=== PATIENT | female | born 1980 | race Caucasian/White ===

== ENCOUNTER 2017-10-16 14:50 | Inpatient (IN) | payer OTHER ==
[2017-10-16] MEDS ORDERED: metroNIDAZOLE 500 MG/NS (PMX) 100 ML IVPB (15:54)
[2017-10-16] MEDS: morphine 2 MG INJ IV (16:17)
[2017-10-16] MEDS: SODIUM CHLORIDE 0.9% 1L BAG IV* (16:17)
[2017-10-16 16:31] LABS: ADD MAN DIFF? NO
[2017-10-16 16:33] LABS: BASOPHILS % 0.2 % (0.0-2.0); HEMATOCRIT 33.8 % (37.0-47.0); HEMOGLOBIN 10.6 g/dl (12.0-16.0); LYMPHOCYTES # 0.9 10^3/ul (0.8-2.9); LYMPHOCYTES % 7.1 % (15.0-51.0); MEAN CORPUSCULAR HEMOGLOBIN 23.7 pg (29.0-33.0); MEAN CORPUSCULAR HGB CONC 31.4 g/dl (32.0-37.0); MEAN CORPUSCULAR VOLUME 75.4 fl (82.0-101.0); MEAN PLATELET VOLUME 8.9 fl (7.4-10.4); MONOCYTE # 1.2 10^3/ul (0.3-0.9); MONOCYTES % 9.9 % (0.0-11.0); NEUTROPHIL # 10.2 10^3/ul (1.6-7.5); NEUTROPHILS % 82.2 % (39.0-77.0); PLATELET COUNT 384 10^3/UL (140-415); RED BLOOD COUNT 4.48 10^6/ul (4.20-5.40); RED CELL DISTRIBUTION WIDTH 17.4 % (11.5-14.5)
[2017-10-16 16:33] LABS: WHITE BLOOD COUNT 12.4 10^3/ul (4.8-10.8)
[2017-10-16 16:53] LABS: INR 1.15; PARTIAL THROMBOPLASTIN TIME 37.7 Sec (25.0-35.0); PROTIME 14.9 Sec (11.9-14.9); PT RATIO 1.2
[2017-10-16 16:54] LABS: LACTIC ACID 1.2 mmol/L (0.5-2.0)
[2017-10-16 16:55] LABS: ALANINE AMINOTRANSFERASE 51 IU/L (13-69); ALBUMIN 3.7 g/dl (3.3-4.9); ALBUMIN/GLOBULIN RATIO 0.97; ALKALINE PHOSPHATASE 163 IU/L (42-121); ANION GAP 15 (8-16); ASPARTATE AMINO TRANSFERASE 47 IU/L (15-46); BILIRUBIN,INDIRECT 0.7 mg/dl (0-1.1); BILIRUBIN,TOTAL 0.7 mg/dl (0.2-1.3); BLOOD UREA NITROGEN 10 mg/dl (7-20); CALCIUM 8.5 mg/dl (8.4-10.2); CARBON DIOXIDE 24 mmol/L (21-31); CHLORIDE 94 mmol/L (97-110); CREATININE 0.62 mg/dl (0.44-1.00); GLUCOSE 117 mg/dl (70-220); POTASSIUM 3.6 mmol/L (3.5-5.1); SODIUM 129 mmol/L (135-144); TOTAL PROTEIN 7.5 g/dl (6.1-8.1)
[2017-10-16] MEDS: ACETAMINOPHEN 500 MG TAB PO (17:09)
[2017-10-16] MEDS: PIPER-TAZO 3.375 GM IV (PMX) 100 ML IVPB ×2 (17:09→23:50)
[2017-10-16] MEDS: morphine 4 MG/ML VIAL IV ×2 (17:29→19:03)
[2017-10-16] MEDS: VANCOMYCIN 1 GM (PMX) 250 ML IVPB (18:10)
[2017-10-16 18:18] LABS: ADD UMIC YES; UR ASCORBIC ACID NEGATIVE (NEGATIVE); UR BACTERIA FEW /HPF (NONE SEEN); UR BILIRUBIN (Dip) NEGATIVE (NEGATIVE); UR BLOOD (Dip) 1+ mg/dL (NEGATIVE); UR CLARITY SLIGHTLY CLOUDY (CLEAR); UR COLOR YELLOW (YELLOW); UR GLUCOSE (Dip) NEGATIVE (NEGATIVE); UR KETONES (Dip) NEGATIVE (NEGATIVE); UR LEUKOCYTE ESTERASE (Dip) TRACE Leu/ul (NEGATIVE); UR NITRITE (Dip) NEGATIVE (NEGATIVE); UR RBC 1 /HPF (0-5); UR SPECIFIC GRAVITY (Dip) 1.016 (1.003-1.030); UR SQUAMOUS EPITHELIAL CELL FEW /HPF (FEW); UR TOTAL PROTEIN (Dip) NEGATIVE (NEGATIVE); UR UROBILINOGEN (Dip) 2+ mg/dL (NEGATIVE); UR WBC 4 /HPF (0-5)
[2017-10-16] MEDS: HYDROmorphONE 2 MG/ML SYG IV (19:33)
[2017-10-16] MEDS ORDERED: ONDANSETRON 4 MG INJ IV ×2 (20:30→22:30)
[2017-10-16] MEDS ORDERED: ACETAMINOPHEN 325 MG TAB PO (20:30)
[2017-10-16] MEDS: SOD CHLORIDE 0.9% 1,000 ML IV ×2 (20:47→22:43)
[2017-10-16] MEDS: IOHEXOL 300MG/ML 150 ML BTL (21:24)
[2017-10-16] MEDS: SOD CHLORIDE 0.9% 100 ML (21:24)
[2017-10-16] MEDS ORDERED: hydrALAzine 20 MG INJ IV (22:30)
[2017-10-16] MEDS ORDERED: NA PHOSPHATE/BIPHOS 133 ML ENEMA PR (22:30)
[2017-10-16] MEDS ORDERED: DOCUSATE SODIUM 100 MG CAP PO (22:30)
[2017-10-16] MEDS ORDERED: ALBUTEROL/IPRATROPIUM (NEB) 3 ML AMP HHN (22:30)
[2017-10-16] MEDS ORDERED: MAGNESIUM HYDROXIDE 30ML CUP PO (22:30)
[2017-10-16] MEDS ORDERED: NITROGLYCERIN (SL) 0.4 MG TAB SL (22:30)
[2017-10-16] MEDS ORDERED: VANCOMYCIN IV PER PHARMACY XX (22:30)
[2017-10-16] MEDS: NACL 0.9% 3 ML SYG IV (22:53)
[2017-10-16 23:39] LABS: INR 1.37; PROTIME 17.1 Sec (11.9-14.9); PT RATIO 1.3
[2017-10-16 23:40] LABS: PARTIAL THROMBOPLASTIN TIME 39.6 Sec (25.0-35.0)
[2017-10-17 01:10] LABS: LACTIC ACID 1.1 mmol/L (0.5-2.0)
[2017-10-17] MEDS: VANCOMYCIN 1 GM 250 ML IVPB ×2 (02:06→11:39)
[2017-10-17] MEDS: ACETAMINOPHEN 325 MG TAB PO (02:07)
[2017-10-17] MEDS: HYDROCODONE/APAP (5/325) TAB PO ×3 (03:19→18:08)
[2017-10-17] MEDS: PANTOPRAZOLE (EC) 40 MG TAB PO (05:04)
[2017-10-17] MEDS: PIPER-TAZO 3.375 GM IV (PMX) 100 ML IVPB ×3 (05:04→18:08)
[2017-10-17 06:33] LABS: WHITE BLOOD COUNT 6.4 10^3/ul (4.8-10.8)
[2017-10-17 06:33] LABS: ABNORMAL IP MESSAGE 1; HEMATOCRIT 33.8 % (37.0-47.0); HEMOGLOBIN 10.4 g/dl (12.0-16.0); MEAN CORPUSCULAR HGB CONC 30.8 g/dl (32.0-37.0); MEAN CORPUSCULAR VOLUME 78.1 fl (82.0-101.0); MEAN PLATELET VOLUME 9.7 fl (7.4-10.4); PLATELET COUNT 383 10^3/UL (140-415); RED BLOOD COUNT 4.33 10^6/ul (4.20-5.40); RED CELL DISTRIBUTION WIDTH 17.9 % (11.5-14.5)
[2017-10-17 06:41] LABS: LACTIC ACID 1.6 mmol/L (0.5-2.0)
[2017-10-17 06:55] LABS: POSITIVE DIFF @See below
[2017-10-17 06:56] LABS: ADD MAN DIFF? YES
[2017-10-17] MEDS: HEPARIN 5,000 UNIT/0.5 ML VIAL SC ×2 (08:25→19:56)
[2017-10-17] MEDS: morphine 2 MG INJ IV ×2 (08:31→19:53)
[2017-10-17 09:07] LABS: ANISOCYTOSIS 1+ (0-0); BAND NEUTROPHILS #M 1.9 10^3/ul (0.0-0.6); BAND NEUTROPHILS % (M) 31 % (0-4); GIANT THROMBO% (M) 17 % (0-0); LYMPHOCYTES #M 1.7 10^3/ul (0.8-2.9); LYMPHOCYTES % (M) 28 % (15-51); METAMYELOCYTES #M 0.1 10^3/ul (0.0-0.0); METAMYELOCYTES %M 2 % (0-0); MICROCYTOSIS 1+ (0-0); MONOCYTE #M 0.7 10^3/ul (0.3-0.9); MONOCYTES % (M) 11 % (0-11); PLATELET ESTIMATE NORMAL; REACTIVE LYMPHOCYTES #M 0.7 10^3/ul (0.0-0.0); REACTIVE LYMPHOCYTES% (M) 11 % (0-0); SEG NEUT #M 1.1 10^3/ul (1.7-7.5); SEGMENTED NEUTROPHILS (M) % 16 % (39-77); SMUDGE%M 7 % (0-0)
[2017-10-17 09:53] LABS: HEMOGLOBIN A1C 5.1 % (0-5.9)
[2017-10-17] MEDS: SOD CHLORIDE 0.9% 1,000 ML IV ×2 (10:26→18:08)
[2017-10-17] MEDS: LORAZEPAM 2 MG INJ IV (11:45)
[2017-10-17 12:22] LABS: ANION GAP 12 (8-16); BLOOD UREA NITROGEN 18 mg/dl (7-20); CALCIUM 7.4 mg/dl (8.4-10.2); CARBON DIOXIDE 23 mmol/L (21-31); CHLORIDE 105 mmol/L (97-110); CHOL/HDL RATIO 3.4 RATIO; CHOLESTEROL 58 mg/dl (100-200); CREATININE 1.14 mg/dl (0.44-1.00); GLUCOSE 78 mg/dl (70-220); HDL CHOLESTEROL 17 mg/dl (34-88); LDL CHOLESTEROL,CALCULATED 28 mg/dl; MAGNESIUM 1.6 mg/dl (1.7-2.5); PHOSPHORUS 5.3 mg/dl (2.5-4.9); POTASSIUM 3.6 mmol/L (3.5-5.1); SODIUM 136 mmol/L (135-144); TRIGLYCERIDES 67 mg/dl (0-149)
[2017-10-17 13:04] LABS: LACTIC ACID 1.2 mmol/L (0.5-2.0)
[2017-10-17] MEDS: MAGNESIUM OXIDE 400 MG TAB PO (15:38)
[2017-10-17 18:45] LABS: LACTIC ACID 1.2 mmol/L (0.5-2.0)
[2017-10-18] MEDS: PIPER-TAZO 3.375 GM IV (PMX) 100 ML IVPB ×4 (00:13→20:20)
[2017-10-18] MEDS: HYDROmorphONE 0.5 MG/0.5 ML SYG IV ×5 (00:13→18:12)
[2017-10-18] MEDS: SOD CHLORIDE 0.9% 1,000 ML IV ×4 (00:52→23:03)
[2017-10-18] MEDS: PANTOPRAZOLE (EC) 40 MG TAB PO (05:29)
[2017-10-18 06:39] LABS: WHITE BLOOD COUNT 12.6 10^3/ul (4.8-10.8)
[2017-10-18 06:39] LABS: HEMATOCRIT 31.5 % (37.0-47.0); HEMOGLOBIN 10.2 g/dl (12.0-16.0); MEAN CORPUSCULAR HEMOGLOBIN 24.3 pg (29.0-33.0); MEAN CORPUSCULAR HGB CONC 32.4 g/dl (32.0-37.0); MEAN PLATELET VOLUME 9.9 fl (7.4-10.4); PLATELET COUNT 432 10^3/UL (140-415); RED CELL DISTRIBUTION WIDTH 17.9 % (11.5-14.5)
[2017-10-18 06:56] LABS: IRON < 10 ug/dl (35-150)
[2017-10-18 06:59] LABS: ANION GAP 12 (8-16); BLOOD UREA NITROGEN 13 mg/dl (7-20); CALCIUM 7.8 mg/dl (8.4-10.2); CARBON DIOXIDE 24 mmol/L (21-31); CHLORIDE 100 mmol/L (97-110); CREATININE 0.75 mg/dl (0.44-1.00); GLUCOSE 82 mg/dl (70-220); POTASSIUM 3.3 mmol/L (3.5-5.1); SODIUM 133 mmol/L (135-144)
[2017-10-18 06:59] LABS: VANCOMYCIN,RANDOM < 5.0 ug/ml
[2017-10-18 07:01] LABS: ADD MAN DIFF? YES; POSITIVE DIFF @See below
[2017-10-18 07:03] LABS: TOTAL IRON BINDING CAPACITY 225 ug/dl (241-421)
[2017-10-18 07:26] LABS: MAGNESIUM 1.7 mg/dl (1.7-2.5)
[2017-10-18] MEDS: ACETAMINOPHEN 325 MG TAB PO ×2 (08:23→20:20)
[2017-10-18] MEDS: VANCOMYCIN 1 GM 250 ML IVPB ×2 (08:24→18:12)
[2017-10-18] MEDS: HEPARIN 5,000 UNIT/0.5 ML VIAL SC (08:24)
[2017-10-18] MEDS: LORAZEPAM 2 MG INJ IV (08:28)
[2017-10-18] MEDS ORDERED: VANCOMYCIN 1 GM 250 ML IVPB (09:00)
[2017-10-18 10:01] LABS: BAND NEUTROPHILS #M 2.6 10^3/ul (0.0-0.6); BAND NEUTROPHILS % (M) 21 % (0-4); HYPOCHROMASIA 1+ (0-0); LYMPHOCYTES #M 0.8 10^3/ul (0.8-2.9); LYMPHOCYTES % (M) 7 % (15-51); MONOCYTE #M 0.3 10^3/ul (0.3-0.9); MONOCYTES % (M) 3 % (0-11); PLATELET ESTIMATE NORMAL; POLYCHROMASIA 1+ (0-0); SEGMENTED NEUTROPHILS (M) % 69 % (39-77)
[2017-10-18] MEDS: HYDROCODONE/APAP (5/325) TAB PO (11:12)
[2017-10-18 12:07] LABS: INR 1.36; PT RATIO 1.3
[2017-10-18 12:08] LABS: PARTIAL THROMBOPLASTIN TIME 53.6 Sec (25.0-35.0)
[2017-10-18] MEDS: PHYTONADIONE 10 MG in DEXTROSE 5% 50 ML IVPB (13:03)
[2017-10-18] MEDS: PROTAMINE 50 MG INJ IV (14:42)
[2017-10-18] MEDS: SOD CHLORIDE 0.9% 500 ML (17:00)
[2017-10-18] MEDS: LIDOCAINE 1% (MDV) 20 ML INJ (17:15)
[2017-10-18] MEDS: FENTAnyl 50 MCG/ML VIAL (17:58)
[2017-10-18] MEDS: MIDAZOLAM 1 MG/ML 2 ML INJ (17:58)
[2017-10-18] MEDS: SOD CHLORIDE 0.9% 500 ML IV (18:10)
[2017-10-18] MEDS ORDERED: BARIUM SULF 2% 450 ML BTL (BERRY SMOOTHIE) PO (18:30)
[2017-10-18] MEDS: HYDROmorphONE 1 MG/ML SYG IV (18:41)
[2017-10-18 18:55] LABS: INR 1.26; PT RATIO 1.3
[2017-10-18 18:56] LABS: PARTIAL THROMBOPLASTIN TIME 52.4 Sec (25.0-35.0)
[2017-10-18 20:13] LABS: WHITE BLOOD COUNT 13.4 10^3/ul (4.8-10.8)
[2017-10-18 20:13] LABS: ABNORMAL IP MESSAGE 1; HEMATOCRIT 28.8 % (37.0-47.0); HEMOGLOBIN 9.3 g/dl (12.0-16.0); MEAN CORPUSCULAR HEMOGLOBIN 24.1 pg (29.0-33.0); MEAN CORPUSCULAR HGB CONC 32.3 g/dl (32.0-37.0); MEAN CORPUSCULAR VOLUME 74.6 fl (82.0-101.0); MEAN PLATELET VOLUME 9.2 fl (7.4-10.4); PLATELET COUNT 419 10^3/UL (140-415); RED BLOOD COUNT 3.86 10^6/ul (4.20-5.40)
[2017-10-18 20:17] LABS: ALANINE AMINOTRANSFERASE 37 IU/L (13-69); ALBUMIN 2.7 g/dl (3.3-4.9); ALBUMIN/GLOBULIN RATIO 0.79; ALKALINE PHOSPHATASE 110 IU/L (42-121); ANION GAP 13 (8-16); ASPARTATE AMINO TRANSFERASE 29 IU/L (15-46); BILIRUBIN,INDIRECT 0.6 mg/dl (0-1.1); BILIRUBIN,TOTAL 1.5 mg/dl (0.2-1.3); BLOOD UREA NITROGEN 10 mg/dl (7-20); CALCIUM 7.6 mg/dl (8.4-10.2); CARBON DIOXIDE 23 mmol/L (21-31); CHLORIDE 101 mmol/L (97-110); CREATININE 0.62 mg/dl (0.44-1.00); GLUCOSE 91 mg/dl (70-220); POTASSIUM 3.5 mmol/L (3.5-5.1); SODIUM 133 mmol/L (135-144); TOTAL PROTEIN 6.1 g/dl (6.1-8.1)
[2017-10-18 20:22] LABS: LACTIC ACID 1.7 mmol/L (0.5-2.0)
[2017-10-18 20:22] LABS: ADD MAN DIFF? YES; POSITIVE DIFF @See below
[2017-10-18 20:45] LABS: ANISOCYTOSIS 1+ (0-0); BAND NEUTROPHILS #M 1.8 10^3/ul (0.0-0.6); BAND NEUTROPHILS % (M) 14 % (0-4); HYPOCHROMASIA 1+ (0-0); LYMPHOCYTES #M 0.1 10^3/ul (0.8-2.9); LYMPHOCYTES % (M) 1 % (15-51); MICROCYTOSIS 1+ (0-0); MONOCYTE #M 0.2 10^3/ul (0.3-0.9); MONOCYTES % (M) 2 % (0-11); PLATELET ESTIMATE INCREASED; POLYCHROMASIA 1+ (0-0); SEG NEUT #M 11.4 10^3/ul (1.7-7.5); SEGMENTED NEUTROPHILS (M) % 83 % (39-77); SMUDGE%M 1 % (0-0)
[2017-10-19] MEDS: PIPER-TAZO 3.375 GM IV (PMX) 100 ML IVPB ×4 (00:31→17:34)
[2017-10-19] MEDS: IOHEXOL 300MG/ML 150 ML BTL (00:42)
[2017-10-19] MEDS: SOD CHLORIDE 0.9% 100 ML (00:42)
[2017-10-19 01:13] LABS: LACTIC ACID 1.2 mmol/L (0.5-2.0)
[2017-10-19] MEDS: VANCOMYCIN 1 GM 250 ML IVPB ×2 (01:19→08:57)
[2017-10-19] MEDS: HYDROmorphONE 0.5 MG/0.5 ML SYG IV ×3 (02:12→09:31)
[2017-10-19] MEDS: SOD CHLORIDE 0.9% 500 ML IV (03:31)
[2017-10-19] MEDS: PANTOPRAZOLE (EC) 40 MG TAB PO (06:27)
[2017-10-19 08:04] LABS: WHITE BLOOD COUNT 13.3 10^3/ul (4.8-10.8)
[2017-10-19 08:04] LABS: HEMATOCRIT 26.8 % (37.0-47.0); HEMOGLOBIN 8.5 g/dl (12.0-16.0); MEAN CORPUSCULAR HEMOGLOBIN 23.7 pg (29.0-33.0); MEAN CORPUSCULAR HGB CONC 31.7 g/dl (32.0-37.0); MEAN CORPUSCULAR VOLUME 74.7 fl (82.0-101.0); MEAN PLATELET VOLUME 8.9 fl (7.4-10.4); PLATELET COUNT 374 10^3/UL (140-415); RED BLOOD COUNT 3.59 10^6/ul (4.20-5.40); RED CELL DISTRIBUTION WIDTH 17.9 % (11.5-14.5)
[2017-10-19 08:09] LABS: ADD MAN DIFF? YES; POSITIVE DIFF @See below
[2017-10-19] MEDS: HYDROCODONE/APAP (5/325) TAB PO ×2 (08:14→14:43)
[2017-10-19 08:26] LABS: LACTIC ACID 0.8 mmol/L (0.5-2.0)
[2017-10-19 08:28] LABS: ALANINE AMINOTRANSFERASE 36 IU/L (13-69); ALBUMIN 2.4 g/dl (3.3-4.9); ALBUMIN/GLOBULIN RATIO 0.72; ALKALINE PHOSPHATASE 109 IU/L (42-121); ANION GAP 9 (8-16); ASPARTATE AMINO TRANSFERASE 29 IU/L (15-46); BILIRUBIN,INDIRECT 0.3 mg/dl (0-1.1); BILIRUBIN,TOTAL 0.6 mg/dl (0.2-1.3); BLOOD UREA NITROGEN 6 mg/dl (7-20); CARBON DIOXIDE 27 mmol/L (21-31); CHLORIDE 101 mmol/L (97-110); CREATININE 0.54 mg/dl (0.44-1.00); GLUCOSE 91 mg/dl (70-220); POTASSIUM 3.1 mmol/L (3.5-5.1); SODIUM 134 mmol/L (135-144); TOTAL PROTEIN 5.7 g/dl (6.1-8.1)
[2017-10-19 09:03] LABS: VANCOMYCIN,TROUGH 9.8 ug/ml (10.0-20.0)
[2017-10-19] MEDS: HYDROmorphONE 1 MG/ML SYG IV ×4 (12:11→22:51)
[2017-10-19 12:50] LABS: ANISOCYTOSIS 1+ (0-0); BAND NEUTROPHILS #M 2.6 10^3/ul (0.0-0.6); BAND NEUTROPHILS % (M) 20 % (0-4); GIANT THROMBO% (M) 3 % (0-0); HYPOCHROMASIA 2+ (0-0); LYMPHOCYTES #M 0.9 10^3/ul (0.8-2.9); LYMPHOCYTES % (M) 7 % (15-51); MICROCYTOSIS 1+ (0-0); MONOCYTE #M 0.3 10^3/ul (0.3-0.9); MONOCYTES % (M) 3 % (0-11); PLATELET ESTIMATE NORMAL; SEG NEUT #M 9.4 10^3/ul (1.7-7.5); SEGMENTED NEUTROPHILS (M) % 68 % (39-77); SMUDGE%M 2 % (0-0)
[2017-10-19] MEDS ORDERED: POTASSIUM CHLORIDE 50 ML IVPB (13:00)
[2017-10-19] MEDS: POTASSIUM CHLORIDE (SR) 20 MEQ TAB PO (14:43)
[2017-10-19] MEDS ORDERED: FLUCONAZOLE 100 MG/NS (PMX) 50 ML IVPB (16:00)
[2017-10-19] MEDS: FLUCONAZOLE 100 MG/NS (PMX) 50 ML IVPB (16:30)
[2017-10-19] MEDS: VANCOMYCIN 1.25 GM in SOD CHLORIDE 0.45% 250 ML IVPB (18:21)
[2017-10-20] MEDS: PIPER-TAZO 3.375 GM IV (PMX) 100 ML IVPB ×4 (00:50→17:33)
[2017-10-20] MEDS: VANCOMYCIN 1.25 GM in SOD CHLORIDE 0.45% 250 ML IVPB ×3 (02:06→17:33)
[2017-10-20] MEDS: HYDROmorphONE 1 MG/ML SYG IV ×3 (02:15→21:32)
[2017-10-20] MEDS: ACETAMINOPHEN 325 MG TAB PO (04:50)
[2017-10-20] MEDS: PANTOPRAZOLE (EC) 40 MG TAB PO (05:07)
[2017-10-20 09:17] LABS: ADD MAN DIFF? NO
[2017-10-20 09:25] LABS: WHITE BLOOD COUNT 10.7 10^3/ul (4.8-10.8)
[2017-10-20 09:25] LABS: BASOPHILS % 0.3 % (0.0-2.0); EOSINOPHILS # 0.1 10^3/ul (0.0-0.5); EOSINOPHILS % 0.7 % (0.0-7.0); HEMATOCRIT 26.4 % (37.0-47.0); HEMOGLOBIN 8.5 g/dl (12.0-16.0); LYMPHOCYTES # 1.1 10^3/ul (0.8-2.9); LYMPHOCYTES % 9.9 % (15.0-51.0); MEAN CORPUSCULAR HEMOGLOBIN 23.9 pg (29.0-33.0); MEAN CORPUSCULAR HGB CONC 32.2 g/dl (32.0-37.0); MEAN CORPUSCULAR VOLUME 74.4 fl (82.0-101.0); MEAN PLATELET VOLUME 9.3 fl (7.4-10.4); MONOCYTE # 0.6 10^3/ul (0.3-0.9); MONOCYTES % 5.6 % (0.0-11.0); NEUTROPHIL # 8.5 10^3/ul (1.6-7.5); NEUTROPHILS % 79.8 % (39.0-77.0); PLATELET COUNT 376 10^3/UL (140-415); RED BLOOD COUNT 3.55 10^6/ul (4.20-5.40)
[2017-10-20 09:51] LABS: ALANINE AMINOTRANSFERASE 39 IU/L (13-69); ALBUMIN 2.6 g/dl (3.3-4.9); ALBUMIN/GLOBULIN RATIO 0.81; ALKALINE PHOSPHATASE 148 IU/L (42-121); ANION GAP 10 (8-16); ASPARTATE AMINO TRANSFERASE 22 IU/L (15-46); BILIRUBIN,INDIRECT 0.2 mg/dl (0-1.1); BILIRUBIN,TOTAL 0.2 mg/dl (0.2-1.3); CALCIUM 7.9 mg/dl (8.4-10.2); CARBON DIOXIDE 31 mmol/L (21-31); CHLORIDE 98 mmol/L (97-110); GLUCOSE 108 mg/dl (70-220); SODIUM 136 mmol/L (135-144); TOTAL PROTEIN 5.8 g/dl (6.1-8.1)
[2017-10-20 09:52] LABS: BLOOD UREA NITROGEN < 2 mg/dl (7-20)
[2017-10-20 09:59] LABS: MAGNESIUM 1.5 mg/dl (1.7-2.5)
[2017-10-20 09:59] LABS: PHOSPHORUS 2.2 mg/dl (2.5-4.9)
[2017-10-20 10:15] LABS: INR 1.02; PROTIME 13.5 Sec (11.9-14.9); PT RATIO 1.1
[2017-10-20 10:16] LABS: PARTIAL THROMBOPLASTIN TIME 40.7 Sec (25.0-35.0)
[2017-10-20] MEDS: LORAZEPAM 2 MG INJ IV (11:18)
[2017-10-20] MEDS: POTASSIUM CHLORIDE (SR) 20 MEQ TAB PO (11:23)
[2017-10-20] MEDS: FLUCONAZOLE 100 MG/NS (PMX) 50 ML IVPB (15:55)
[2017-10-20 17:50] LABS: VANCOMYCIN,TROUGH 9.7 ug/ml (10.0-20.0)
[2017-10-21] MEDS: PIPER-TAZO 3.375 GM IV (PMX) 100 ML IVPB (00:13)
[2017-10-21] MEDS: HYDROmorphONE 1 MG/ML SYG IV ×2 (01:39→05:10)
[2017-10-21] MEDS: VANCOMYCIN 1.25 GM in SOD CHLORIDE 0.45% 250 ML IVPB (01:39)
== END 2017-10-21 06:50 | disposition left against medical advice (07) | DRG 871 ==
LOC: TEL 10-18 23:00 → FTE 14:50 → MS2 20:29
PROC: 0W9J30Z Drainage of Pelvic Cavity with Drainage Device, Percutaneous Approach (ICD-10-PCS; principal; 2017-10-18)
DX: A41.9 Sepsis, unspecified organism (principal); K65.1 Peritoneal abscess; D68.9 Coagulation defect, unspecified; N13.30 Unspecified hydronephrosis; K56.7 Ileus, unspecified; F17.200 Nicotine dependence, unspecified, uncomplicated; D50.9 Iron deficiency anemia, unspecified; R65.20 Severe sepsis without septic shock; B96.89 Other specified bacterial agents as the cause of diseases classified elsewhere; Z59.0 Homelessness
CPT/HCPCS: 36415; 74176; 74177; 76830; 76856; 77012; 80048; 80053; 80061; 80202; 81001; 82728; 82962; 83036; 83540; 83605; 83735; 84100; 84439; 84443; 85025; 85610; 85730; 87040; 87070; 87075; 87081; 87086; 87591; 96361; 96365; 96375; 96376; 99291-25; J2720

== ENCOUNTER 2017-10-22 21:31 | Inpatient (IN) | payer OTHER ==
[2017-10-22] MEDS ORDERED: NACL 0.9% 3 ML SYG IV (22:30)
[2017-10-22] MEDS ORDERED: ACETAMINOPHEN 325 MG TAB PO (22:30)
[2017-10-22] MEDS ORDERED: ONDANSETRON 4 MG INJ IV (22:30)
[2017-10-22 23:07] LABS: ABNORMAL IP MESSAGE 1; HEMATOCRIT 27.4 % (37.0-47.0); HEMOGLOBIN 8.5 g/dl (12.0-16.0); MEAN CORPUSCULAR HEMOGLOBIN 23.3 pg (29.0-33.0); MEAN CORPUSCULAR VOLUME 75.1 fl (82.0-101.0); MEAN PLATELET VOLUME 8.5 fl (7.4-10.4); NUCLEATED RED BLOOD CELLS% 0.2 /100WBC (0.0-0.0); PLATELET COUNT 508 10^3/UL (140-415); RED BLOOD COUNT 3.65 10^6/ul (4.20-5.40); RED CELL DISTRIBUTION WIDTH 18.3 % (11.5-14.5)
[2017-10-22 23:07] LABS: WHITE BLOOD COUNT 16.1 10^3/ul (4.8-10.8)
[2017-10-22 23:40] LABS: ALANINE AMINOTRANSFERASE 32 IU/L (13-69); ALBUMIN 2.8 g/dl (3.3-4.9); ALBUMIN/GLOBULIN RATIO 0.84; ALKALINE PHOSPHATASE 216 IU/L (42-121); ASPARTATE AMINO TRANSFERASE 48 IU/L (15-46); BILIRUBIN,INDIRECT 0.2 mg/dl (0-1.1); BILIRUBIN,TOTAL 0.2 mg/dl (0.2-1.3); BLOOD UREA NITROGEN 3 mg/dl (7-20); CALCIUM 8.2 mg/dl (8.4-10.2); CARBON DIOXIDE 27 mmol/L (21-31); CHLORIDE 102 mmol/L (97-110); CREATININE 0.54 mg/dl (0.44-1.00); GLUCOSE 104 mg/dl (70-220); MAGNESIUM 1.6 mg/dl (1.7-2.5); SODIUM 137 mmol/L (135-144); TOTAL PROTEIN 6.1 g/dl (6.1-8.1)
[2017-10-22] MEDS: HYDROmorphONE 0.5 MG/0.5 ML SYG IV (23:40)
[2017-10-22 23:46] LABS: POSITIVE DIFF @See below
[2017-10-22 23:47] LABS: ADD MAN DIFF? YES
[2017-10-22 23:53] LABS: ANION GAP 12 (8-16); POTASSIUM 3.5 mmol/L (3.5-5.1)
[2017-10-23 00:47] LABS: BAND NEUTROPHILS #M 1.6 10^3/ul (0.0-0.6); BAND NEUTROPHILS % (M) 10 % (0-4); EOSINOPHILS % (M) 5 % (0-7); LYMPHOCYTES #M 0.8 10^3/ul (0.8-2.9); LYMPHOCYTES % (M) 5 % (15-51); MONOCYTE #M 1.2 10^3/ul (0.3-0.9); MONOCYTES % (M) 8 % (0-11); PLATELET ESTIMATE NORMAL; SEG NEUT #M 11.8 10^3/ul (1.7-7.5); SEGMENTED NEUTROPHILS (M) % 72 % (39-77); SMUDGE%M 47 % (0-0)
[2017-10-23] MEDS ORDERED: VANCOMYCIN IV PER PHARMACY XX (02:00)
[2017-10-23] MEDS: PIPER-TAZO 3.375 GM IV (PMX) 100 ML IVPB ×4 (02:23→18:09)
[2017-10-23] MEDS: POTASSIUM CHLORIDE (SR) 20 MEQ TAB PO (02:27)
[2017-10-23] MEDS: MAGNESIUM SULFATE 2 GM/50 ML 50 ML IVPB (03:20)
[2017-10-23] MEDS: HYDROmorphONE 0.5 MG/0.5 ML SYG IV (03:24)
[2017-10-23] MEDS: VANCOMYCIN 1.25 GM in SOD CHLORIDE 0.45% 250 ML IVPB ×3 (05:30→21:49)
[2017-10-23] MEDS: HYDROmorphONE 1 MG/ML SYG IV ×4 (08:01→21:49)
[2017-10-23] MEDS: BARIUM SULF 2% 450 ML BTL (BERRY SMOOTHIE) PO (14:00)
[2017-10-23] MEDS ORDERED: VANCOMYCIN 1 GM 250 ML IVPB (15:00)
[2017-10-23] MEDS: LORAZEPAM 2 MG INJ IV (16:01)
[2017-10-24] MEDS: PIPER-TAZO 3.375 GM IV (PMX) 100 ML IVPB ×4 (01:19→17:26)
[2017-10-24] MEDS: HYDROmorphONE 1 MG/ML SYG IV ×2 (02:42→19:37)
[2017-10-24] MEDS: VANCOMYCIN 1.25 GM in SOD CHLORIDE 0.45% 250 ML IVPB ×3 (04:48→20:24)
[2017-10-24] MEDS: LORAZEPAM 2 MG INJ IV (05:46)
[2017-10-24 06:17] LABS: ABNORMAL IP MESSAGE 1; HEMATOCRIT 27.6 % (37.0-47.0); HEMOGLOBIN 8.4 g/dl (12.0-16.0); MEAN CORPUSCULAR HEMOGLOBIN 23.3 pg (29.0-33.0); MEAN CORPUSCULAR HGB CONC 30.4 g/dl (32.0-37.0); MEAN CORPUSCULAR VOLUME 76.5 fl (82.0-101.0); MEAN PLATELET VOLUME 9.1 fl (7.4-10.4); PLATELET COUNT 597 10^3/UL (140-415); RED BLOOD COUNT 3.61 10^6/ul (4.20-5.40); RED CELL DISTRIBUTION WIDTH 18.6 % (11.5-14.5)
[2017-10-24 06:17] LABS: WHITE BLOOD COUNT 16.1 10^3/ul (4.8-10.8)
[2017-10-24 06:30] LABS: ADD MAN DIFF? YES; POSITIVE DIFF @See below
[2017-10-24 06:43] LABS: INR 0.99; PROTIME 13.2 Sec (11.9-14.9)
[2017-10-24 06:44] LABS: PARTIAL THROMBOPLASTIN TIME 37.7 Sec (25.0-35.0)
[2017-10-24] MEDS: SOD CHLORIDE 0.9% 100 ML ×2 (07:14→10:13)
[2017-10-24] MEDS: IOHEXOL 300MG/ML 150 ML BTL ×2 (07:14→10:13)
[2017-10-24 07:21] LABS: ALANINE AMINOTRANSFERASE 32 IU/L (13-69); ALBUMIN 2.8 g/dl (3.3-4.9); ALBUMIN/GLOBULIN RATIO 0.75; ALKALINE PHOSPHATASE 241 IU/L (42-121); ANION GAP 11 (8-16); ASPARTATE AMINO TRANSFERASE 27 IU/L (15-46); BILIRUBIN,INDIRECT 0.1 mg/dl (0-1.1); BILIRUBIN,TOTAL 0.1 mg/dl (0.2-1.3); BLOOD UREA NITROGEN 5 mg/dl (7-20); CALCIUM 8.3 mg/dl (8.4-10.2); CARBON DIOXIDE 30 mmol/L (21-31); CHLORIDE 100 mmol/L (97-110); CREATININE 0.58 mg/dl (0.44-1.00); GLUCOSE 102 mg/dl (70-220); MAGNESIUM 1.9 mg/dl (1.7-2.5); PHOSPHORUS 4.2 mg/dl (2.5-4.9); SODIUM 137 mmol/L (135-144); TOTAL PROTEIN 6.5 g/dl (6.1-8.1)
[2017-10-24 10:00] LABS: ANISOCYTOSIS 1+ (0-0); BAND NEUTROPHILS #M 0.4 10^3/ul (0.0-0.6); BAND NEUTROPHILS % (M) 3 % (0-4); EOSINOPHILS % (M) 1 % (0-7); HYPOCHROMASIA 1+ (0-0); LYMPHOCYTES #M 0.3 10^3/ul (0.8-2.9); LYMPHOCYTES % (M) 2 % (15-51); METAMYELOCYTES #M 0.3 10^3/ul (0.0-0.0); METAMYELOCYTES %M 2 % (0-0); MICROCYTOSIS 1+ (0-0); MONOCYTE #M 1.7 10^3/ul (0.3-0.9); MONOCYTES % (M) 11 % (0-11); MYELOCYTES #M 0.1 10^3/ul (0.0-0.0); MYELOCYTES % (M) 1 % (0-0); PLASMA CELLS #M 0.1 10^3/ul (0.0-0.0); PLASMAC%(M) 1 % (0); PLATELET ESTIMATE INCREASED; POLYCHROMASIA 2+ (0-0); PROMYELOCYTES #M 0.3 10^3/ul (0-0); PROMYELOCYTES % (M) 2 % (0-0); REACTIVE LYMPHOCYTES #M 0.3 10^3/ul (0.0-0.0); REACTIVE LYMPHOCYTES% (M) 2 % (0-0); SEG NEUT #M 12.3 10^3/ul (1.7-7.5); SEGMENTED NEUTROPHILS (M) % 76 % (39-77); SMUDGE%M 8 % (0-0)
[2017-10-24 12:58] LABS: VANCOMYCIN,TROUGH 14.5 ug/ml (10.0-20.0)
[2017-10-24] MEDS: morphine (ER) 15 MG TAB PO ×2 (13:28→21:37)
[2017-10-25] MEDS: PIPER-TAZO 3.375 GM IV (PMX) 100 ML IVPB ×4 (00:38→20:23)
[2017-10-25] MEDS: LORAZEPAM 2 MG INJ IV ×2 (00:38→10:37)
[2017-10-25] MEDS: VANCOMYCIN 1.25 GM in SOD CHLORIDE 0.45% 250 ML IVPB ×3 (05:30→21:57)
[2017-10-25] MEDS: HYDROmorphONE 1 MG/ML SYG IV (05:45)
[2017-10-25 05:53] LABS: ADD MAN DIFF? NO
[2017-10-25 06:08] LABS: WHITE BLOOD COUNT 13.2 10^3/ul (4.8-10.8)
[2017-10-25 06:08] LABS: ABNORMAL IP MESSAGE 1; BASOPHILS % 0.2 % (0.0-2.0); EOSINOPHILS # 0.2 10^3/ul (0.0-0.5); EOSINOPHILS % 1.3 % (0.0-7.0); HEMATOCRIT 26.3 % (37.0-47.0); HEMOGLOBIN 8.4 g/dl (12.0-16.0); LYMPHOCYTES # 1.8 10^3/ul (0.8-2.9); LYMPHOCYTES % 13.9 % (15.0-51.0); MEAN CORPUSCULAR HEMOGLOBIN 24.3 pg (29.0-33.0); MEAN CORPUSCULAR HGB CONC 31.9 g/dl (32.0-37.0); MEAN PLATELET VOLUME 8.9 fl (7.4-10.4); MONOCYTE # 0.8 10^3/ul (0.3-0.9); MONOCYTES % 5.8 % (0.0-11.0); NEUTROPHIL # 9.7 10^3/ul (1.6-7.5); NEUTROPHILS % 73.4 % (39.0-77.0); PLATELET COUNT 555 10^3/UL (140-415); RED BLOOD COUNT 3.46 10^6/ul (4.20-5.40); RED CELL DISTRIBUTION WIDTH 18.6 % (11.5-14.5)
[2017-10-25 06:17] LABS: POSITIVE DIFF @See below
[2017-10-25 06:18] LABS: ANION GAP 12 (8-16); BLOOD UREA NITROGEN 6 mg/dl (7-20); CALCIUM 8.7 mg/dl (8.4-10.2); CARBON DIOXIDE 30 mmol/L (21-31); CHLORIDE 100 mmol/L (97-110); CREATININE 0.57 mg/dl (0.44-1.00); GLUCOSE 100 mg/dl (70-220); POTASSIUM 3.9 mmol/L (3.5-5.1); SODIUM 138 mmol/L (135-144)
[2017-10-25 06:32] LABS: IRON 11 ug/dl (35-150)
[2017-10-25 06:41] LABS: % IRON SATURATION 4 % SAT (22-52); TOTAL IRON BINDING CAPACITY 275 ug/dl (241-421)
[2017-10-25 06:51] LABS: FERRITIN 72.8 ng/ml (6.2-137.0)
[2017-10-25] MEDS ORDERED: EPHEDrine SULFATE 50 MG/5 ML SYG (07:00)
[2017-10-25] MEDS: morphine (ER) 15 MG TAB PO ×3 (09:22→22:48)
[2017-10-25] MEDS ORDERED: MEPERIDINE 100 MG INJ (14:31)
[2017-10-25] MEDS ORDERED: SUCCINYLCHOLINE CHLORIDE 100 MG/5 ML SYG IV (14:31)
[2017-10-25] MEDS ORDERED: LIDOCAINE 2% (SDV) 5 ML INJ (14:31)
[2017-10-25] MEDS ORDERED: GLYCOPYRROLATE 0.4 MG INJ ×2 (14:31→17:12)
[2017-10-25] MEDS ORDERED: PROPOFOL 20 ML (14:31)
[2017-10-25] MEDS ORDERED: ROCURONIUM 50 MG INJ ×2 (14:31→14:36)
[2017-10-25] MEDS ORDERED: NEOSTIGMINE 3 MG/3 ML SYRINGE (14:31)
[2017-10-25] MEDS: BUPIVACAINE 0.25%/EPI (SDV) 30 ML INJ (14:58)
[2017-10-25] MEDS ORDERED: HYDROmorphONE (0.2 MG/ML) 10ML SYG IV ×3 (17:50→18:00)
[2017-10-25] MEDS ORDERED: ACETAMINOPHEN 1000MG/100ML IV 100 ML (17:51)
[2017-10-25] MEDS ORDERED: OXYCODONE/ACETAMINOPHEN (5/325) TAB PO ×2 (18:00)
[2017-10-25] MEDS ORDERED: EPHEDrine SULFATE 50 MG/5 ML SYG IV (18:00)
[2017-10-25] MEDS ORDERED: FENTAnyl 50 MCG/ML VIAL IV ×3 (18:00)
[2017-10-25] MEDS ORDERED: METOCLOPRAMIDE 10 MG INJ IV (18:00)
[2017-10-25] MEDS ORDERED: HYDROmorphONE 1 MG/ML SYG IV (18:00)
[2017-10-25] MEDS ORDERED: MIDAZOLAM 1 MG/ML 2 ML INJ IV (18:00)
[2017-10-25] MEDS ORDERED: LABETALOL HCL 20MG INJ IV (18:00)
[2017-10-25] MEDS ORDERED: hydrALAzine 20 MG INJ IV (18:00)
[2017-10-25] MEDS ORDERED: MEPERIDINE 25 MG INJ IV (18:00)
[2017-10-25] MEDS: HYDROmorphONE (0.2 MG/ML) 10ML SYG IV (18:02)
[2017-10-25] MEDS: ONDANSETRON 4 MG INJ IV (18:02)
[2017-10-25] MEDS: ACETAMINOPHEN 1000MG/100ML IV 100 ML IVPB (18:30)
[2017-10-25] MEDS: DIPHENHYDRAMINE 50 MG INJ IV (19:45)
[2017-10-25] MEDS: HYDROCODONE/APAP (5/325) TAB PO (22:47)
[2017-10-26] MEDS: PIPER-TAZO 3.375 GM IV (PMX) 100 ML IVPB ×4 (01:03→17:55)
[2017-10-26] MEDS: HYDROmorphONE 0.5 MG/0.5 ML SYG IV (02:21)
[2017-10-26] MEDS: HYDROCODONE/APAP (5/325) TAB PO ×3 (04:55→17:55)
[2017-10-26] MEDS: VANCOMYCIN 1.25 GM in SOD CHLORIDE 0.45% 250 ML IVPB (04:56)
[2017-10-26 06:30] LABS: WHITE BLOOD COUNT 24.9 10^3/ul (4.8-10.8)
[2017-10-26 06:30] LABS: ABNORMAL IP MESSAGE 1; ADD MAN DIFF? NO; BASOPHIL # 0.1 10^3/ul (0.0-0.1); BASOPHILS % 0.3 % (0.0-2.0); EOSINOPHILS % 0.1 % (0.0-7.0); HEMATOCRIT 32.1 % (37.0-47.0); HEMOGLOBIN 10.1 g/dl (12.0-16.0); LYMPHOCYTES # 1.4 10^3/ul (0.8-2.9); LYMPHOCYTES % 5.5 % (15.0-51.0); MEAN CORPUSCULAR HGB CONC 31.5 g/dl (32.0-37.0); MEAN CORPUSCULAR VOLUME 76.2 fl (82.0-101.0); MEAN PLATELET VOLUME 8.6 fl (7.4-10.4); MONOCYTE # 1.1 10^3/ul (0.3-0.9); MONOCYTES % 4.5 % (0.0-11.0); NEUTROPHIL # 21.4 10^3/ul (1.6-7.5); NEUTROPHILS % 86.1 % (39.0-77.0); RED BLOOD COUNT 4.21 10^6/ul (4.20-5.40); RED CELL DISTRIBUTION WIDTH 18.6 % (11.5-14.5)
[2017-10-26 06:38] LABS: INR 1.17; PROTIME 15.1 Sec (11.9-14.9); PT RATIO 1.2
[2017-10-26 06:53] LABS: ALANINE AMINOTRANSFERASE 35 IU/L (13-69); ALBUMIN 2.4 g/dl (3.3-4.9); ALBUMIN/GLOBULIN RATIO 0.77; ALKALINE PHOSPHATASE 175 IU/L (42-121); ANION GAP 15 (8-16); ASPARTATE AMINO TRANSFERASE 25 IU/L (15-46); BILIRUBIN,INDIRECT 0.4 mg/dl (0-1.1); BILIRUBIN,TOTAL 0.4 mg/dl (0.2-1.3); BLOOD UREA NITROGEN 15 mg/dl (7-20); CALCIUM 7.7 mg/dl (8.4-10.2); CARBON DIOXIDE 26 mmol/L (21-31); CHLORIDE 99 mmol/L (97-110); GLUCOSE 103 mg/dl (70-220); PHOSPHORUS 5.9 mg/dl (2.5-4.9); POTASSIUM 5.6 mmol/L (3.5-5.1); SODIUM 134 mmol/L (135-144); TOTAL PROTEIN 5.5 g/dl (6.1-8.1)
[2017-10-26 07:01] LABS: PLATELET COUNT 790 10^3/UL (140-415); POSITIVE DIFF @See below
[2017-10-26 07:06] LABS: PARTIAL THROMBOPLASTIN TIME 40.1 Sec (25.0-35.0)
[2017-10-26 07:10] LABS: LACTIC ACID 1.2 mmol/L (0.5-2.0)
[2017-10-26 07:23] LABS: MAGNESIUM 1.5 mg/dl (1.7-2.5)
[2017-10-26] MEDS: FAMOTIDINE 20 MG INJ IV (09:13)
[2017-10-26] MEDS: ENOXAPARIN 40 MG/0.4 ML SYG SC (09:13)
[2017-10-26] MEDS: morphine (ER) 15 MG TAB PO ×2 (09:55→20:36)
[2017-10-26] MEDS: FUROSEMIDE 40 MG INJ IV (09:57)
[2017-10-26] MEDS: SOD CHLORIDE 0.9% 1,000 ML IV (13:02)
[2017-10-26] MEDS: MAGNESIUM SULFATE 3 GM in DEXTROSE 5% 100 ML IVPB (14:32)
[2017-10-26 17:44] LABS: ANION GAP 15 (8-16); BLOOD UREA NITROGEN 19 mg/dl (7-20); CALCIUM 7.8 mg/dl (8.4-10.2); CARBON DIOXIDE 24 mmol/L (21-31); CHLORIDE 98 mmol/L (97-110); CREATININE 2.69 mg/dl (0.44-1.00); GLUCOSE 106 mg/dl (70-220); POTASSIUM 4.8 mmol/L (3.5-5.1); SODIUM 132 mmol/L (135-144)
[2017-10-26] MEDS: SOD FERRIC GLUC COMPLX 125 MG in SOD CHLORIDE 0.9% 100 ML IVPB (20:35)
[2017-10-27] MEDS: PIPER-TAZO 3.375 GM IV (PMX) 100 ML IVPB ×2 (00:12→05:50)
[2017-10-27] MEDS: SOD CHLORIDE 0.9% 1,000 ML IV ×5 (00:14→23:41)
[2017-10-27] MEDS: HYDROCODONE/APAP (5/325) TAB PO ×2 (00:17→15:23)
[2017-10-27] MEDS: HYDROmorphONE 0.5 MG/0.5 ML SYG IV ×2 (05:55→10:44)
[2017-10-27 06:08] LABS: ADD MAN DIFF? NO
[2017-10-27 06:26] LABS: WHITE BLOOD COUNT 25.6 10^3/ul (4.8-10.8)
[2017-10-27 06:26] LABS: ABNORMAL IP MESSAGE 1; BASOPHIL # 0.1 10^3/ul (0.0-0.1); BASOPHILS % 0.2 % (0.0-2.0); EOSINOPHILS # 0.1 10^3/ul (0.0-0.5); EOSINOPHILS % 0.4 % (0.0-7.0); HEMATOCRIT 26.4 % (37.0-47.0); HEMOGLOBIN 8.5 g/dl (12.0-16.0); LYMPHOCYTES # 1.2 10^3/ul (0.8-2.9); LYMPHOCYTES % 4.7 % (15.0-51.0); MEAN CORPUSCULAR HGB CONC 32.2 g/dl (32.0-37.0); MEAN CORPUSCULAR VOLUME 74.6 fl (82.0-101.0); MEAN PLATELET VOLUME 8.7 fl (7.4-10.4); MONOCYTE # 1.4 10^3/ul (0.3-0.9); MONOCYTES % 5.4 % (0.0-11.0); NEUTROPHIL # 22.3 10^3/ul (1.6-7.5); NEUTROPHILS % 87.1 % (39.0-77.0); PLATELET COUNT 718 10^3/UL (140-415); RED BLOOD COUNT 3.54 10^6/ul (4.20-5.40); RED CELL DISTRIBUTION WIDTH 18.6 % (11.5-14.5)
[2017-10-27 06:40] LABS: POSITIVE DIFF @See below
[2017-10-27 06:55] LABS: ANION GAP 19 (8-16); BLOOD UREA NITROGEN 24 mg/dl (7-20); CALCIUM 8.1 mg/dl (8.4-10.2); CARBON DIOXIDE 21 mmol/L (21-31); CHLORIDE 98 mmol/L (97-110); CREATININE 3.55 mg/dl (0.44-1.00); GLUCOSE 107 mg/dl (70-220); MAGNESIUM 2.4 mg/dl (1.7-2.5); POTASSIUM 4.9 mmol/L (3.5-5.1); SODIUM 133 mmol/L (135-144)
[2017-10-27 07:32] LABS: VANCOMYCIN,RANDOM 28.2 ug/ml
[2017-10-27] MEDS: morphine (ER) 15 MG TAB PO ×2 (08:08→20:43)
[2017-10-27] MEDS: FAMOTIDINE 20 MG INJ IV (08:08)
[2017-10-27] MEDS: ENOXAPARIN 40 MG/0.4 ML SYG SC (09:53)
[2017-10-27] MEDS ORDERED: PIPER-TAZO 2.25 GM (PMX) 50 ML IVPB (14:00)
[2017-10-27] MEDS: BISACODYL 10 MG SUPP PR (18:02)
[2017-10-27] MEDS: ZYVOX 600 MG TAB PO (20:43)
[2017-10-27] MEDS: MEROPENEM 500MG/50 ML (PMX) 50 ML IVPB (20:43)
[2017-10-27] MEDS: DOCUSATE SODIUM 100 MG CAP PO (20:43)
[2017-10-27] MEDS: NA PHOSPHATE/BIPHOS 133 ML ENEMA PR (23:39)
[2017-10-28] MEDS ORDERED: BISACODYL 10 MG SUPP PR
[2017-10-28] MEDS: HYDROmorphONE 0.5 MG/0.5 ML SYG IV (03:09)
[2017-10-28] MEDS: SOD CHLORIDE 0.9% 1,000 ML IV (04:30)
[2017-10-28 06:05] LABS: ADD MAN DIFF? NO
[2017-10-28 06:10] LABS: WHITE BLOOD COUNT 17.5 10^3/ul (4.8-10.8)
[2017-10-28 06:10] LABS: BASOPHILS % 0.2 % (0.0-2.0); EOSINOPHILS # 0.1 10^3/ul (0.0-0.5); EOSINOPHILS % 0.7 % (0.0-7.0); HEMATOCRIT 23.6 % (37.0-47.0); HEMOGLOBIN 7.4 g/dl (12.0-16.0); LYMPHOCYTES # 1.1 10^3/ul (0.8-2.9); MEAN CORPUSCULAR HEMOGLOBIN 23.6 pg (29.0-33.0); MEAN CORPUSCULAR HGB CONC 31.4 g/dl (32.0-37.0); MEAN CORPUSCULAR VOLUME 75.2 fl (82.0-101.0); MEAN PLATELET VOLUME 8.4 fl (7.4-10.4); MONOCYTES % 5.8 % (0.0-11.0); NEUTROPHILS % 85.8 % (39.0-77.0); PLATELET COUNT 716 10^3/UL (140-415); RED BLOOD COUNT 3.14 10^6/ul (4.20-5.40); RED CELL DISTRIBUTION WIDTH 18.1 % (11.5-14.5)
[2017-10-28] MEDS: BISACODYL 10 MG SUPP PR (06:15)
[2017-10-28 06:35] LABS: ANION GAP 18 (8-16); BLOOD UREA NITROGEN 30 mg/dl (7-20); CALCIUM 8.1 mg/dl (8.4-10.2); CARBON DIOXIDE 21 mmol/L (21-31); CHLORIDE 102 mmol/L (97-110); CREATININE 4.34 mg/dl (0.44-1.00); GLUCOSE 112 mg/dl (70-220); POTASSIUM 4.5 mmol/L (3.5-5.1); SODIUM 136 mmol/L (135-144)
[2017-10-28] MEDS ORDERED: DOCUSATE SODIUM 100 MG CAP PO (09:00)
[2017-10-28] MEDS: FAMOTIDINE 20 MG INJ IV (09:59)
[2017-10-28] MEDS: morphine (ER) 15 MG TAB PO ×2 (09:59→20:46)
[2017-10-28] MEDS: DOCUSATE SODIUM 100 MG CAP PO (09:59)
[2017-10-28] MEDS: ZYVOX 600 MG TAB PO ×2 (09:59→20:46)
[2017-10-28] MEDS: MEROPENEM 500MG/50 ML (PMX) 50 ML IVPB ×2 (09:59→20:46)
[2017-10-28] MEDS: ENOXAPARIN 40 MG/0.4 ML SYG SC (10:05)
[2017-10-28] MEDS: NA PHOSPHATE/BIPHOS 133 ML ENEMA PR (13:05)
[2017-10-28] MEDS: HYDROmorphONE 1 MG/ML SYG IV ×2 (13:09→22:49)
[2017-10-28] MEDS: EPOETIN 10000 UNITS/ML (NON ESRD/NON ONCOLOGY) SC (18:08)
[2017-10-28] MEDS: SOD CHLORIDE 0.45% 1,000 ML IV (18:11)
[2017-10-28] MEDS ORDERED: NA PHOSPHATE/BIPHOS 133 ML ENEMA PR (19:00)
[2017-10-28 20:31] LABS: SODIUM,URINE RANDOM 66 mmol/L (30-90)
[2017-10-28 20:36] LABS: CREATININE,URINE RANDOM 27.27 mg/dl (20-320); PROTEIN/CREAT RATIO 0.84 RATIO
[2017-10-28 20:41] LABS: ADD UMIC YES; UR ASCORBIC ACID NEGATIVE (NEGATIVE); UR BILIRUBIN (Dip) NEGATIVE (NEGATIVE); UR BLOOD (Dip) 1+ mg/dL (NEGATIVE); UR CLARITY CLEAR (CLEAR); UR COLOR STRAW (YELLOW); UR GLUCOSE (Dip) NEGATIVE (NEGATIVE); UR KETONES (Dip) NEGATIVE (NEGATIVE); UR LEUKOCYTE ESTERASE (Dip) NEGATIVE Leu/ul (NEGATIVE); UR NITRITE (Dip) NEGATIVE (NEGATIVE); UR RBC 1 /HPF (0-5); UR SPECIFIC GRAVITY (Dip) 1.005 (1.003-1.030); UR SQUAMOUS EPITHELIAL CELL MODERATE /HPF (FEW); UR TOTAL PROTEIN (Dip) NEGATIVE (NEGATIVE); UR UROBILINOGEN (Dip) NEGATIVE (NEGATIVE); UR WBC 5 /HPF (0-5)
[2017-10-28] MEDS: FAMOTIDINE 20 MG TAB PO (20:46)
[2017-10-29] MEDS: NA PHOSPHATE/BIPHOS 133 ML ENEMA PR ×2 (00:04→12:05)
[2017-10-29] MEDS: HYDROmorphONE 1 MG/ML SYG IV ×3 (03:38→20:36)
[2017-10-29] MEDS: HEPARIN 5,000 UNIT/0.5 ML VIAL SC ×2 (05:44→13:32)
[2017-10-29] MEDS: SOD CHLORIDE 0.45% 1,000 ML IV ×3 (05:47→20:36)
[2017-10-29 06:20] LABS: ADD MAN DIFF? NO
[2017-10-29 06:31] LABS: WHITE BLOOD COUNT 12.7 10^3/ul (4.8-10.8)
[2017-10-29 06:31] LABS: BASOPHILS % 0.2 % (0.0-2.0); EOSINOPHILS # 0.1 10^3/ul (0.0-0.5); EOSINOPHILS % 0.6 % (0.0-7.0); HEMATOCRIT 23.8 % (37.0-47.0); HEMOGLOBIN 7.6 g/dl (12.0-16.0); LYMPHOCYTES # 1.2 10^3/ul (0.8-2.9); LYMPHOCYTES % 9.6 % (15.0-51.0); MEAN CORPUSCULAR HEMOGLOBIN 24.2 pg (29.0-33.0); MEAN CORPUSCULAR HGB CONC 31.9 g/dl (32.0-37.0); MEAN CORPUSCULAR VOLUME 75.8 fl (82.0-101.0); MEAN PLATELET VOLUME 8.6 fl (7.4-10.4); MONOCYTE # 0.9 10^3/ul (0.3-0.9); MONOCYTES % 6.9 % (0.0-11.0); NEUTROPHIL # 10.3 10^3/ul (1.6-7.5); NEUTROPHILS % 81.5 % (39.0-77.0); PLATELET COUNT 801 10^3/UL (140-415); RED BLOOD COUNT 3.14 10^6/ul (4.20-5.40); RED CELL DISTRIBUTION WIDTH 18.2 % (11.5-14.5)
[2017-10-29 06:56] LABS: INR 1.12; PROTIME 14.6 Sec (11.9-14.9); PT RATIO 1.1
[2017-10-29 06:57] LABS: PARTIAL THROMBOPLASTIN TIME 45.7 Sec (25.0-35.0)
[2017-10-29 06:59] LABS: LACTIC ACID 0.6 mmol/L (0.5-2.0)
[2017-10-29 07:03] LABS: ALANINE AMINOTRANSFERASE 28 IU/L (13-69); ALBUMIN 2.5 g/dl (3.3-4.9); ALKALINE PHOSPHATASE 214 IU/L (42-121); ANION GAP 17 (8-16); ASPARTATE AMINO TRANSFERASE 20 IU/L (15-46); BLOOD UREA NITROGEN 31 mg/dl (7-20); CALCIUM 8.1 mg/dl (8.4-10.2); CARBON DIOXIDE 22 mmol/L (21-31); CHLORIDE 103 mmol/L (97-110); CREATININE 3.76 mg/dl (0.44-1.00); GLUCOSE 101 mg/dl (70-220); MAGNESIUM 1.9 mg/dl (1.7-2.5); PHOSPHORUS 6.3 mg/dl (2.5-4.9); POTASSIUM 4.7 mmol/L (3.5-5.1); SODIUM 137 mmol/L (135-144); TOTAL PROTEIN 5.6 g/dl (6.1-8.1)
[2017-10-29 07:14] LABS: B-TYPE NATRIURETIC PEPTIDE 1650 PG/ML (0-125)
[2017-10-29] MEDS: MEROPENEM 500MG/50 ML (PMX) 50 ML IVPB ×2 (09:06→21:56)
[2017-10-29] MEDS: ZYVOX 600 MG TAB PO ×2 (09:06→21:01)
[2017-10-29] MEDS: morphine (ER) 15 MG TAB PO ×2 (09:06→22:32)
[2017-10-29] MEDS: HYDROCODONE/APAP (5/325) TAB PO (13:29)
[2017-10-29] MEDS: FAMOTIDINE 20 MG TAB PO (21:01)
[2017-10-30] MEDS: SOD CHLORIDE 0.45% 1,000 ML IV (00:02)
[2017-10-30] MEDS: HYDROmorphONE 0.5 MG/0.5 ML SYG IV (02:07)
[2017-10-30] MEDS ORDERED: ALBUTEROL/IPRATROPIUM (NEB) 3 ML AMP HHN (04:00)
[2017-10-30 06:23] LABS: ADD MAN DIFF? NO
[2017-10-30 06:29] LABS: WHITE BLOOD COUNT 10.1 10^3/ul (4.8-10.8)
[2017-10-30 06:29] LABS: BASOPHILS % 0.3 % (0.0-2.0); EOSINOPHILS # 0.1 10^3/ul (0.0-0.5); EOSINOPHILS % 0.9 % (0.0-7.0); HEMATOCRIT 23.5 % (37.0-47.0); HEMOGLOBIN 7.3 g/dl (12.0-16.0); LYMPHOCYTES # 1.3 10^3/ul (0.8-2.9); LYMPHOCYTES % 12.7 % (15.0-51.0); MEAN CORPUSCULAR HEMOGLOBIN 23.5 pg (29.0-33.0); MEAN CORPUSCULAR HGB CONC 31.1 g/dl (32.0-37.0); MEAN CORPUSCULAR VOLUME 75.6 fl (82.0-101.0); MEAN PLATELET VOLUME 8.5 fl (7.4-10.4); MONOCYTE # 0.9 10^3/ul (0.3-0.9); MONOCYTES % 8.8 % (0.0-11.0); NEUTROPHIL # 7.7 10^3/ul (1.6-7.5); NEUTROPHILS % 76.3 % (39.0-77.0); RED BLOOD COUNT 3.11 10^6/ul (4.20-5.40); RED CELL DISTRIBUTION WIDTH 18.2 % (11.5-14.5)
[2017-10-30 07:05] LABS: ANION GAP 13 (8-16); BLOOD UREA NITROGEN 28 mg/dl (7-20); CALCIUM 8.6 mg/dl (8.4-10.2); CARBON DIOXIDE 26 mmol/L (21-31); CHLORIDE 103 mmol/L (97-110); GLUCOSE 110 mg/dl (70-220); MAGNESIUM 1.6 mg/dl (1.7-2.5); PHOSPHORUS 6.2 mg/dl (2.5-4.9); POTASSIUM 4.3 mmol/L (3.5-5.1); SODIUM 138 mmol/L (135-144)
[2017-10-30 07:22] LABS: PLATELET COUNT 687 10^3/UL (140-415)
[2017-10-30] MEDS: METHADONE (1 MG/ML 5 ML PO UD SYG) PO ×2 (08:09→21:33)
[2017-10-30] MEDS: ZYVOX 600 MG TAB PO ×2 (08:10→21:31)
[2017-10-30] MEDS: MEROPENEM 500MG/50 ML (PMX) 50 ML IVPB ×2 (08:11→21:31)
[2017-10-30] MEDS: NA PHOSPHATE/BIPHOS 133 ML ENEMA PR ×2 (12:00)
[2017-10-30] MEDS: HYDROmorphONE 1 MG/ML SYG IV ×2 (13:06→18:37)
[2017-10-30] MEDS: MAGNESIUM SULFATE 2 GM/50 ML 50 ML IVPB (14:00)
[2017-10-30] MEDS: SOD FERRIC GLUC COMPLX 125 MG in SOD CHLORIDE 0.9% 100 ML IVPB (15:30)
[2017-10-30] MEDS: EPOETIN 10000 UNITS/ML (NON ESRD/NON ONCOLOGY) SC (17:28)
[2017-10-30] MEDS: FAMOTIDINE 20 MG TAB PO (21:31)
[2017-10-31] MEDS: NA PHOSPHATE/BIPHOS 133 ML ENEMA PR ×2 (00:17→12:00)
[2017-10-31] MEDS: HYDROmorphONE 2 MG TAB PO ×2 (00:17→21:09)
[2017-10-31] MEDS: LORAZEPAM 2 MG INJ IV ×2 (02:31→22:38)
[2017-10-31 07:11] LABS: ANION GAP 17 (8-16); BLOOD UREA NITROGEN 27 mg/dl (7-20); CALCIUM 8.4 mg/dl (8.4-10.2); CARBON DIOXIDE 24 mmol/L (21-31); CHLORIDE 105 mmol/L (97-110); CREATININE 3.08 mg/dl (0.44-1.00); GLUCOSE 100 mg/dl (70-220); POTASSIUM 4.4 mmol/L (3.5-5.1); SODIUM 142 mmol/L (135-144)
[2017-10-31] MEDS: METHADONE (1 MG/ML 5 ML PO UD SYG) PO ×2 (08:16→21:00)
[2017-10-31] MEDS: ZYVOX 600 MG TAB PO ×2 (08:17→21:06)
[2017-10-31] MEDS: HYDROmorphONE 1 MG/ML SYG IV ×2 (08:21→13:59)
[2017-10-31] MEDS: MEROPENEM 500MG/50 ML (PMX) 50 ML IVPB ×2 (08:23→21:06)
[2017-10-31] MEDS: SOD FERRIC GLUC COMPLX 125 MG in SOD CHLORIDE 0.9% 100 ML IVPB (14:12)
[2017-10-31] MEDS: FAMOTIDINE 20 MG TAB PO (21:06)
[2017-11-01] MEDS: HYDROmorphONE 2 MG TAB PO ×3 (04:42→14:41)
[2017-11-01] MEDS: MEROPENEM 500MG/50 ML (PMX) 50 ML IVPB (08:24)
[2017-11-01] MEDS: METHADONE (1 MG/ML 5 ML PO UD SYG) PO ×2 (08:26→21:00)
[2017-11-01] MEDS: ZYVOX 600 MG TAB PO (08:26)
[2017-11-01 11:10] LABS: ADD MAN DIFF? NO
[2017-11-01 11:13] LABS: WHITE BLOOD COUNT 9.5 10^3/ul (4.8-10.8)
[2017-11-01 11:13] LABS: BASOPHILS % 0.4 % (0.0-2.0); EOSINOPHILS # 0.2 10^3/ul (0.0-0.5); EOSINOPHILS % 2.3 % (0.0-7.0); HEMATOCRIT 24.4 % (37.0-47.0); HEMOGLOBIN 7.5 g/dl (12.0-16.0); LYMPHOCYTES # 1.1 10^3/ul (0.8-2.9); LYMPHOCYTES % 11.2 % (15.0-51.0); MEAN CORPUSCULAR HEMOGLOBIN 23.4 pg (29.0-33.0); MEAN CORPUSCULAR HGB CONC 30.7 g/dl (32.0-37.0); MEAN PLATELET VOLUME 8.4 fl (7.4-10.4); MONOCYTE # 0.8 10^3/ul (0.3-0.9); MONOCYTES % 8.1 % (0.0-11.0); NEUTROPHIL # 7.3 10^3/ul (1.6-7.5); NEUTROPHILS % 77.1 % (39.0-77.0); PLATELET COUNT 513 10^3/UL (140-415); RED BLOOD COUNT 3.21 10^6/ul (4.20-5.40); RED CELL DISTRIBUTION WIDTH 17.9 % (11.5-14.5)
[2017-11-01 11:33] LABS: ANION GAP 15 (8-16); BLOOD UREA NITROGEN 25 mg/dl (7-20); CALCIUM 8.6 mg/dl (8.4-10.2); CARBON DIOXIDE 26 mmol/L (21-31); CHLORIDE 104 mmol/L (97-110); CREATININE 2.48 mg/dl (0.44-1.00); GLUCOSE 99 mg/dl (70-220); MAGNESIUM 1.5 mg/dl (1.7-2.5); POTASSIUM 4.6 mmol/L (3.5-5.1); SODIUM 140 mmol/L (135-144)
[2017-11-01] MEDS: NA PHOSPHATE/BIPHOS 133 ML ENEMA PR ×2 (13:13)
[2017-11-01] MEDS: SOD FERRIC GLUC COMPLX 125 MG in SOD CHLORIDE 0.9% 100 ML IVPB (14:41)
[2017-11-01] MEDS: HYDROmorphONE 1 MG/ML SYG IV ×2 (15:16→20:39)
[2017-11-01] MEDS: FAMOTIDINE 20 MG TAB PO (20:39)
[2017-11-01] MEDS: AMOXICILLIN/CLAV 875 MG TAB PO (22:35)
[2017-11-01] MEDS: LORAZEPAM 2 MG INJ IV (22:36)
[2017-11-02] MEDS: MAGNESIUM SULFATE 3 GM in DEXTROSE 5% 100 ML IVPB (00:09)
[2017-11-02] MEDS: NA PHOSPHATE/BIPHOS 133 ML ENEMA PR ×2 (00:09→12:00)
[2017-11-02] MEDS: HYDROmorphONE 1 MG/ML SYG IV ×3 (00:14→09:40)
[2017-11-02 06:08] LABS: ADD MAN DIFF? NO
[2017-11-02 06:14] LABS: WHITE BLOOD COUNT 9.2 10^3/ul (4.8-10.8)
[2017-11-02 06:14] LABS: BASOPHILS % 0.4 % (0.0-2.0); EOSINOPHILS # 0.2 10^3/ul (0.0-0.5); HEMATOCRIT 24.8 % (37.0-47.0); HEMOGLOBIN 7.7 g/dl (12.0-16.0); LYMPHOCYTES # 1.2 10^3/ul (0.8-2.9); LYMPHOCYTES % 13.5 % (15.0-51.0); MEAN CORPUSCULAR HEMOGLOBIN 23.5 pg (29.0-33.0); MEAN CORPUSCULAR VOLUME 75.6 fl (82.0-101.0); MEAN PLATELET VOLUME 8.4 fl (7.4-10.4); MONOCYTE # 0.9 10^3/ul (0.3-0.9); MONOCYTES % 9.5 % (0.0-11.0); NEUTROPHIL # 6.8 10^3/ul (1.6-7.5); NEUTROPHILS % 73.5 % (39.0-77.0); PLATELET COUNT 488 10^3/UL (140-415); RED BLOOD COUNT 3.28 10^6/ul (4.20-5.40); RED CELL DISTRIBUTION WIDTH 18.1 % (11.5-14.5)
[2017-11-02 06:48] LABS: ANION GAP 16 (8-16); BLOOD UREA NITROGEN 23 mg/dl (7-20); CALCIUM 8.7 mg/dl (8.4-10.2); CARBON DIOXIDE 27 mmol/L (21-31); CHLORIDE 104 mmol/L (97-110); CREATININE 2.16 mg/dl (0.44-1.00); GLUCOSE 98 mg/dl (70-220); MAGNESIUM 2.2 mg/dl (1.7-2.5); PHOSPHORUS 5.5 mg/dl (2.5-4.9); POTASSIUM 4.2 mmol/L (3.5-5.1); SODIUM 143 mmol/L (135-144)
[2017-11-02] MEDS: METHADONE (1 MG/ML 5 ML PO UD SYG) PO ×2 (09:00→21:00)
[2017-11-02] MEDS: AMOXICILLIN/CLAV 875 MG TAB PO ×2 (09:25→21:00)
[2017-11-02] MEDS: HYDROmorphONE 2 MG TAB PO ×3 (13:32→21:37)
[2017-11-02] MEDS: EPOETIN 10000 UNITS/ML (NON ESRD/NON ONCOLOGY) SC (17:40)
[2017-11-02] MEDS: FAMOTIDINE 20 MG TAB PO (21:01)
[2017-11-02] MEDS: LORAZEPAM 0.5 MG TAB PO (21:36)
[2017-11-03] MEDS: NA PHOSPHATE/BIPHOS 133 ML ENEMA PR
[2017-11-03 06:18] LABS: ADD MAN DIFF? NO
[2017-11-03 06:37] LABS: BASOPHILS % 0.3 % (0.0-2.0); EOSINOPHILS # 0.2 10^3/ul (0.0-0.5); EOSINOPHILS % 1.9 % (0.0-7.0); HEMATOCRIT 25.4 % (37.0-47.0); HEMOGLOBIN 7.9 g/dl (12.0-16.0); LYMPHOCYTES # 1.2 10^3/ul (0.8-2.9); LYMPHOCYTES % 13.2 % (15.0-51.0); MEAN CORPUSCULAR HEMOGLOBIN 23.6 pg (29.0-33.0); MEAN CORPUSCULAR HGB CONC 31.1 g/dl (32.0-37.0); MEAN CORPUSCULAR VOLUME 75.8 fl (82.0-101.0); MEAN PLATELET VOLUME 8.4 fl (7.4-10.4); MONOCYTES % 10.9 % (0.0-11.0); NEUTROPHIL # 6.6 10^3/ul (1.6-7.5); NEUTROPHILS % 72.3 % (39.0-77.0); PLATELET COUNT 453 10^3/UL (140-415); RED BLOOD COUNT 3.35 10^6/ul (4.20-5.40); RED CELL DISTRIBUTION WIDTH 18.3 % (11.5-14.5)
[2017-11-03 06:37] LABS: WHITE BLOOD COUNT 9.1 10^3/ul (4.8-10.8)
[2017-11-03 06:49] LABS: ANION GAP 14 (8-16); BLOOD UREA NITROGEN 22 mg/dl (7-20); CALCIUM 8.9 mg/dl (8.4-10.2); CARBON DIOXIDE 29 mmol/L (21-31); CHLORIDE 103 mmol/L (97-110); CREATININE 1.92 mg/dl (0.44-1.00); GLUCOSE 94 mg/dl (70-220); MAGNESIUM 1.6 mg/dl (1.7-2.5); PHOSPHORUS 5.5 mg/dl (2.5-4.9); POTASSIUM 4.4 mmol/L (3.5-5.1); SODIUM 142 mmol/L (135-144)
[2017-11-03] MEDS: AMOXICILLIN/CLAV 875 MG TAB PO (07:57)
[2017-11-03] MEDS: METHADONE (1 MG/ML 5 ML PO UD SYG) PO ×2 (07:57→09:00)
[2017-11-03] MEDS: HYDROmorphONE 2 MG TAB PO (07:58)
[2017-11-03] MEDS: MAGNESIUM SULFATE 3 GM in DEXTROSE 5% 100 ML IVPB (09:00)
[2017-11-03] MEDS ORDERED: AL HYDROX/MG HYDROX/SIMETH 30 ML CUP PO (10:30)
[2017-11-03] MEDS ORDERED: BARIUM SULF 2% 450 ML BTL (BERRY SMOOTHIE) PO (11:00)
[2017-11-03] MEDS: MAGNESIUM OXIDE 400 MG TAB PO (12:39)
== END 2017-11-03 12:45 | disposition home or self-care (01) | DRG 853 ==
LOC: MS2 21:31
PROC: 0DTJ0ZZ Resection of Appendix, Open Approach (ICD-10-PCS; principal; 2017-10-25 14:17)
PROC: 0DNU4ZZ Release Omentum, Percutaneous Endoscopic Approach (ICD-10-PCS; 2017-10-25 14:17)
PROC: 0UN90ZZ Release Uterus, Open Approach (ICD-10-PCS; 2017-10-25 14:17)
PROC: 0W9J0ZZ Drainage of Pelvic Cavity, Open Approach (ICD-10-PCS; 2017-10-25 14:17)
DX: A41.9 Sepsis, unspecified organism (principal); K65.1 Peritoneal abscess; N17.0 Acute kidney failure with tubular necrosis; I95.89 Other hypotension; E46 Unspecified protein-calorie malnutrition; N13.30 Unspecified hydronephrosis; E83.42 Hypomagnesemia; D50.9 Iron deficiency anemia, unspecified; F17.200 Nicotine dependence, unspecified, uncomplicated; D63.8 Anemia in other chronic diseases classified elsewhere; E66.9 Obesity, unspecified; F99 Mental disorder, not otherwise specified; G89.4 Chronic pain syndrome; N73.6 Female pelvic peritoneal adhesions (postinfective); Z53.31 Laparoscopic surgical procedure converted to open procedure; Z68.28 Body mass index [BMI] 28.0-28.9, adult; Z59.0 Homelessness; Z91.14 Patient's other noncompliance with medication regimen
CPT/HCPCS: 71045; 74177; 76775; 80048; 80053; 80202; 81001; 81003; 82570; 82728; 83540; 83605; 83735; 83880; 84100; 84300; 84703; 85025; 85610; 85730; 87070; 87075; 87081; 87086; 87102; 87116; 88304; 97163